=== PATIENT | female | born 1955 | race Caucasian/White ===

== ENCOUNTER 2017-10-13 10:38 | Outpatient (CLI) | payer OTHER ==
--- NOTE | 2017-10-13 12:53 | XRAY Report ---
TWO-VIEW CHEST: 10/13/2017. COMPARISON: No comparison. INDICATION: Pleuritic chest pain. TECHNIQUE: Two views. FINDINGS: Clear lungs. No pneumothorax or pleural effusion. Mediastinum unremarkable. IMPRESSION: NO EVIDENCE OF ACUTE THORACIC PROCESS. TD: 10/13/2017 12:52 MTDD
== END 2017-10-13 10:39 | disposition home or self-care (01) ==
LOC: DI 10:38
PROVIDERS: ATTEND Family Medicine
DX: R07.81 Pleurodynia (principal); R06.2 Wheezing
CPT/HCPCS: 71046

== ENCOUNTER 2018-05-25 12:52 | Outpatient (CLI) | payer OTHER ==
--- NOTE | 2018-05-25 14:11 | XRAY Report ---
Reason: TRAUMA TO RIGHT WRIST, FALL Procedure Date: 05/25/2018 Accession Number: [id number] / [id number] Procedure: XR - Wrist 4 View RT CPT Code: FULL RESULT: EXAM: RIGHT WRIST RADIOGRAPHY. EXAM DATE: 05/25/2018 01:59 PM. CLINICAL HISTORY: Trauma to right wrist, fall. COMPARISON: None. TECHNIQUE: 4 views, including dedicated scaphoid view. FINDINGS: Bones: Normal. No fractures or bone lesions. Joints: Mild widening of the scapholunate distance could indicate prior injury versus laxity of the interosseous ligaments. Soft Tissues: Normal. No soft tissue swelling. IMPRESSION: 1. No acute fracture. 2. Mild widening of the scapholunate distance; finding could indicate prior injury versus laxity of the interosseous ligaments. RADIA
--- NOTE | 2018-05-25 14:44 | XRAY Report ---
Reason: FALL,CONTUSION POSSIBLE DISLOCATION OF R HIP,TRA Procedure Date: 05/25/2018 Accession Number: [id number] / [id number] Procedure: XR - Hip w/Pelvis 2-3V RT CPT Code: FULL RESULT: EXAM: RIGHT HIP AND PELVIS RADIOGRAPHY EXAM DATE: 05/25/2018 01:59 PM. HISTORY: Fall, contusion, possible dislocation of right hip. COMPARISONS: None. TECHNIQUE: 1 view of the pelvis and 1 view of the hip. FINDINGS: Bones: There is a mildly impacted valgus angulated transverse fracture of the right femoral neck. Hip remains located. No additional fractures identified. SI joints and sacrum appear intact. Joints: As above. Soft Tissues: Normal. No soft tissue swelling. IMPRESSION: Acute transverse fracture of the right femoral neck as described. RADIA The above findings were discussed with Leeanne Hays by Dr. Sukhwinder Lewis at 14:40 hrs on 05/25/2018.
== END 2018-05-25 12:53 | disposition home or self-care (01) ==
LOC: DI 12:52
PROVIDERS: ATTEND Naturopath
DX: S72.001A Fracture of unspecified part of neck of right femur, initial encounter for closed fracture (principal); S70.01XA Contusion of right hip, initial encounter; S69.91XA Unspecified injury of right wrist, hand and finger(s), initial encounter

== ENCOUNTER 2018-05-25 14:24 | Emergency (ER) | payer OTHER ==
--- NOTE | 2018-05-25 14:49 | ED Physician Documentation ---
PD HPI LOWER EXT INJURY - Stated complaint Stated Complaint: R HIP PX - Chief complaint Chief Complaint: Trauma Ext - History obtained from History obtained from: Patient - History of Present Illness PD HPI LOW EXT INJURY LOCATION: Other (She fell off a trampoline last night onto her right hip and has severe pain with motion but only mild at rest. She also injured her right hand. No head or neck injury.) Review of Systems Ten Systems: 10 systems reviewed and negative Constitutional: reports: Reviewed and negative Throat: reports: Reviewed and negative Cardiac: reports: Reviewed and negative Respiratory: reports: Reviewed and negative PD PAST MEDICAL HISTORY - Past Medical History Past Medical History: Yes Neuro: Other (claustrophobia) - Past Surgical History Past Surgical History: No - Allergies Allergies/Adverse Reactions: Allergies Allergy/AdvReac Type Severity Reaction Status Date / Time metronidazole Allergy Hives Verified 05/25/18 14:33 sertraline [From Zoloft] Allergy Hives Verified 05/25/18 14:34 - Social History Does the pt smoke?: No Does the pt have substance abuse?: No - Family History Family history: reports: Non contributory PD ED PE NORMAL - Vitals Vital signs reviewed: Yes - General General: Alert and oriented X 3, No acute distress - HEENT HEENT: PERRL, EOMI - Neck Neck: Supple, no meningeal sign, No bony TTP - Cardiac Cardiac: RRR, No murmur - Respiratory Respiratory: No respiratory distress, Clear bilaterally - Abdomen Abdomen: Normal bowel sounds, Soft, Non tender - Back Back: No spinal TTP - Derm Derm: Normal color, Warm and dry - Extremities Extremities: Other (Tender over the right hip and cannot range it at all. She has mild tenderness over the radial side of the right wrist without deformity. Good range of motion.) - Neuro Neuro: Alert and oriented X 3, Normal speech - Psych Psych: Normal mood, Normal affect Results - Vitals Vitals: Vital Signs - 24 hr 05/25/18 14:30 Temperature 36.3 C L Heart Rate 75 Respiratory 16 Rate Blood Pressure 131/78 H O2 Saturation 99 Oxygen O2 Source Room air - Labs Labs: Laboratory Tests 05/25/18 05/25/18 05/25/18 15:25 15:25 15:25 WBC 6.8 RBC 4.27 Hgb 13.7 Hct 39.7 MCV 93.0 MCH 32.2 H MCHC 34.6 RDW 12.8 Plt Count 250 MPV 8.1 Neut # (Auto) 5.1 Lymph # (Auto) 0.9 L Dawson # (Auto) 0.5 Eos # (Auto) 0.3 Baso # (Auto) 0.0 Absolute Nucleated RBC 0.00 Nucleated RBC % 0.0 PT 13.0 H INR 1.2 Sodium 136 Potassium 3.4 L Chloride 100 L Carbon Dioxide 28 Anion Gap 8.0 BUN 7 Creatinine 0.6 Estimated GFR (MDRD) 102 Glucose 104 H Calcium 9.1 Total Bilirubin 1.2 H AST 22 ALT 17 Alkaline Phosphatase 60 Total Protein 7.6 Albumin 4.4 Globulin 3.2 Albumin/Globulin Ratio 1.4 Lipase 33 PD MEDICAL DECISION MAKING - ED course ED course: Outpatient x-rays demonstrate mild widening of the scapholunate joint on the right and a right femoral neck fracture She would like to be transferred preferably at [facility], [facility] was called for potential transfer at 3:23 PM. After discussion with [place] I also spoke with the orthopedist at [facility], Dr. Palacios who accepts in transport. [facility] were completed and [facility] took care of the details. Departure - Departure Disposition: 02 Transfer Acute Care Hosp Clinical Impression: Fracture of femoral neck, right Qualifiers: Encounter type: initial encounter Fracture type: closed Qualified Code(s): S72.001A - Fracture of unspecified part of neck of right femur, initial encounter for closed fracture Right wrist sprain Qualifiers: Encounter type: initial encounter Qualified Code(s): S63.501A - Unspecified sprain of right wrist, initial encounter Condition: Stable
[2018-05-25] MEDS ORDERED: MORPHINE 2 MG/ML CARPUJECT IVP STA (15:21)
[2018-05-25 15:38] LABS: BASOPHILS % (AUTO) 0.4 %; EOSINOPHILS # (AUTO) 0.3 10^3/uL (0.0-0.7); EOSINOPHILS % (AUTO) 3.9 %; HGB - HEMOGLOBIN 13.7 g/dL (12.0-16.0); LYMPHOCYTES # (AUTO) 0.9 10^3/uL (1.5-3.5); LYMPHOCYTES % (AUTO) 13.6 %; MEAN CORPUSCULAR HEMOGLOBIN 32.2 pg (27.0-31.0); MEAN CORPUSCULAR HGB CONC 34.6 g/dL (32.0-36.0); MEAN PLATELET VOLUME 8.1 fL (7.9-10.8); MONOCYTES # (AUTO) 0.5 10^3/uL (0.0-1.0); MONOCYTES % (AUTO) 6.9 %; NEUTROPHILS # (AUTO) 5.1 10^3/uL (1.5-6.6); NEUTROPHILS % (AUTO) 75.2 %; PLT - PLATELET COUNT 250 10^3/uL (130-450); RED BLOOD COUNT 4.27 10^6/uL (4.20-5.40); RED CELL DISTRIBUTION WIDTH 12.8 % (12.0-15.0); WHITE BLOOD COUNT 6.8 x10^3/uL (4.8-10.8)
[2018-05-25 15:53] LABS: ALBUMIN 4.4 g/dL (3.2-5.5); ALBUMIN/GLOBULIN RATIO 1.4 (1.0-2.2); BILIRUBIN,TOTAL 1.2 mg/dL (0.2-1.0); CALCIUM 9.1 mg/dL (8.5-10.3); CREATININE 0.6 mg/dL (0.4-1.0); TOTAL PROTEIN 7.6 g/dL (6.7-8.2)
[2018-05-25 16:01] LABS: INR 1.2 (0.8-1.2)
[2018-05-25 19:48] VITALS: BP 130/80
== END 2018-05-25 20:00 | disposition short-term general hospital (02) ==
LOC: ED 14:24
DX: S72.001A Fracture of unspecified part of neck of right femur, initial encounter for closed fracture (principal); S63.501A Unspecified sprain of right wrist, initial encounter; S70.01XA Contusion of right hip, initial encounter; W17.89XA Other fall from one level to another, initial encounter; Y93.44 Activity, trampolining
CPT/HCPCS: 36415; 80053; 83690; 85025; 85610; 99283; 99284

== ENCOUNTER 2020-07-31 17:08 | Outpatient (CLI) | payer OTHER | END 2020-07-31 17:09 | disposition home or self-care (01) | LOC: LAB.S 17:08 | PROVIDERS: ATTEND Physician Assistant | DX: R21 Rash and other nonspecific skin eruption (principal) | CPT/HCPCS: 36415; 86769 ==